=== PATIENT | female | born 1970 | race Caucasian/White ===

== ENCOUNTER 2018-05-22 10:43 | Emergency (ER) | payer OTHER ==
[~2018-05-22] VITALS: Ht 160 cm; Wt 79.4 kg
[~2018-05-22 10:43] MED LIST: ACCUNEB SO1.25 MG/1 INH; ACETAMINOPHEN650 M5 PO; CALCIUM 500 +1 EAC5 PO; CLARITIN-D 12 H1 TA1 PO; CLIMARA PRO PA1 EACH TRANSDERM; DEXILANT60 MG PO; IBUPROFEN 600600 M1 PO; IRON236 MG PO; MULTIVITAMINS PO; NORCO 5-325 TA1 EACH PO; OMEGA-31000 M1 PO; QNASL8.7 GM INH; QVAR HFA 880 MCG/UN1 INH; TRAMADOL100 MG PO; VITAMIN D-32000 UNIT PO; WELLBUTRIN XL150 M2 PO; ZOFRAN ODT4 MG PO; ZYBAN150 MG PO
[2018-05-22 12:10] VITALS: BP 121/70
[2018-05-22] MEDS ORDERED: NORCO 10-325 T1 EACH PO (13:46)
== END 2018-05-22 14:23 | disposition home or self-care (01) ==
LOC: ER 10:43
DX: S82.62XA Displaced fracture of lateral malleolus of left fibula, initial encounter for closed fracture (principal); S92.322A Displaced fracture of second metatarsal bone, left foot, initial encounter for closed fracture; S92.332A Displaced fracture of third metatarsal bone, left foot, initial encounter for closed fracture; S92.342A Displaced fracture of fourth metatarsal bone, left foot, initial encounter for closed fracture; F32.9 Major depressive disorder, single episode, unspecified; J45.909 Unspecified asthma, uncomplicated; K21.9 Gastro-esophageal reflux disease without esophagitis; Z86.2 Personal history of diseases of the blood and blood-forming organs and certain disorders involving the immune mechanism; Z88.5 Allergy status to narcotic agent; Z88.8 Allergy status to other drugs, medicaments and biological substances; Z87.891 Personal history of nicotine dependence; W18.39XA Other fall on same level, initial encounter; Y93.89 Activity, other specified; Y92.89 Other specified places as the place of occurrence of the external cause; Y99.8 Other external cause status